=== PATIENT | female | born 1990 | race African-American/Black ===

== ENCOUNTER 2020-07-05 14:28 | Emergency (ER) | payer OTHER ==
--- NOTE | 2020-07-05 15:02 | ED Physician Documentation ---
History of Present Illness - Stated complaint Stated Complaint: GLF - Chief complaint Chief Complaint: Trauma Ext - History obtained from History obtained from: Patient - History of Present Illness Timing: Prior to arrival, How many weeks ago (1) - Additonal information Additional information: 30-year-old female presents the emergency department with 1 week of left knee pain. She reports being at a grocery market about 1 week ago, slipping and falling forward directly onto her left knee. She has had some pain and swelling since. She has not taken anything for pain but has occasionally iced it. No history of previous injury to this leg. She is ambulatory with a mild limp Review of Systems Constitutional: reports: Reviewed and negative Eyes: reports: Reviewed and negative Ears: reports: Reviewed and negative Nose: reports: Reviewed and negative Throat: reports: Reviewed and negative Cardiac: reports: Reviewed and negative Respiratory: reports: Reviewed and negative Skin: reports: Reviewed and negative Musculoskeletal: reports: Joint pain (left knee) Neurologic: reports: Reviewed and negative PD PAST MEDICAL HISTORY - Present Medications Home Medications: Ambulatory Orders Medication Instructions Recorded Confirmed Ibuprofen [Motrin] 600 mg PO Q6H PRN #30 tab 07/05/20 - Allergies Allergies/Adverse Reactions: Allergies Allergy/AdvReac Type Severity Reaction Status Date / Time No Known Drug Allergies Allergy Verified 07/05/20 14:37 - Social History Does the pt smoke?: No Smoking Status: Never smoker PD ED PE EXPANDED - Extremities Extremities: Left knee (Mild tenderness over the left patella without deformity. Normal flexion extension of knee against resistance. No laxity. No tenderness at the tibial plateau or fibular head. nearly normal gait; mild limp only) Results - Vitals Vitals: Vital Signs - 24 hr 07/05/20 14:35 Temperature 37.2 C Heart Rate 65 Respiratory 19 Rate Blood Pressure 135/85 H O2 Saturation 100 Oxygen O2 Source Room air - Rads (name of study) left knee Radiology: EMP read indepedently (No acute fracture or dislocation.) PD MEDICAL DECISION MAKING - ED course Complexity details: reviewed results, re-evaluated patient, considered differential, d/w patient ED course: 30-year-old female presents to the emergency department for evaluation of acute left knee pain that was sustained nearly 1 week ago when she fell directly onto her knee at a grocery store. On exam she has mild swelling but no laxity. She has a nearly normal gait with a mild limp noted. I do not appreciate any acute fracture dislocation on the imaging. Patient will be placed in an Jagdish wrap advised NSAID or Tylenol for analgesia. Emergent return precautions discussed. Departure - Departure Clinical Impression: Left knee pain Qualifiers: Chronicity: acute Qualified Code(s): M25.562 - Pain in left knee Knee contusion Qualifiers: Encounter type: initial encounter Laterality: left Qualified Code(s): S80.02XA - Contusion of left knee, initial encounter Condition: Stable Record reviewed to determine appropriate education?: Yes Instructions: ED Contusion Lower Ext Prescriptions: Ibuprofen [Motrin] 600 mg PO Q6H PRN #30 tab PRN Reason: Pain Comments: The x-ray of your knee does not show any broken bones or dislocations. You most likely have soft tissue injury or bruising after the fall. I do recommend that you wear the Jagdish wrap as provided and take ibuprofen as prescribed 2-3 times a day for pain. Please schedule follow-up with your primary care doctor for reevaluation. If not markedly better in 7 to 10 days you may benefit from a physical therapy evaluation
--- NOTE | 2020-07-05 15:32 | XRAY Report ---
PROCEDURE: Knee 2 View LT INDICATIONS: Trauma, fall, rule out fracture TECHNIQUE: 2 views of the left knee(s) were acquired. COMPARISON: None. FINDINGS: Bones: No fractures or dislocations. No suspicious bony lesions. Soft tissues: No joint effusion or lipohemarthrosis. No suspicious soft tissue calcifications. IMPRESSION: No evidence of fracture or other acute finding. Reviewed by: Lionel Bird MD on 07/05/2020 3:31 PM PST Approved by: Lionel Bird MD on 07/05/2020 3:31 PM PST Station ID: [id number]
[2020-07-05 16:12] VITALS: BP 132/72
== END 2020-07-05 16:11 | disposition home or self-care (01) ==
LOC: EDBD → ED 14:28
DX: S80.02XA Contusion of left knee, initial encounter (principal); W01.0XXA Fall on same level from slipping, tripping and stumbling without subsequent striking against object, initial encounter; Y93.01 Activity, walking, marching and hiking; Y92.512 Supermarket, store or market as the place of occurrence of the external cause
CPT/HCPCS: 99281; 99283

== ENCOUNTER 2020-08-18 21:26 | Emergency (ER) | payer OTHER ==
[2020-08-18 21:57] LABS: BASOPHILS % (AUTO) 0.2 %; HGB - HEMOGLOBIN 14.9 g/dL (12.0-16.0); LYMPHOCYTES # (AUTO) 2.6 10^3/uL (1.5-3.5); LYMPHOCYTES % (AUTO) 25.4 %; MEAN CORPUSCULAR HEMOGLOBIN 29.4 pg (27.0-31.0); MEAN CORPUSCULAR HGB CONC 32.8 g/dL (32.0-36.0); MEAN CORPUSCULAR VOLUME 89.5 fL (81.0-99.0); MEAN PLATELET VOLUME 11.2 fL (7.9-10.8); MONOCYTES # (AUTO) 0.5 10^3/uL (0.0-1.0); MONOCYTES % (AUTO) 4.6 %; NEUTROPHILS % (AUTO) 69.6 %; PLT - PLATELET COUNT 241 10^3/uL (130-450); RED BLOOD COUNT 5.07 10^6/uL (4.20-5.40); RED CELL DISTRIBUTION WIDTH 12.6 % (12.0-15.0); WHITE BLOOD COUNT 10.1 x10^3/uL (4.8-10.8)
--- NOTE | 2020-08-18 21:58 | ED Physician Documentation ---
History of Present Illness - Stated complaint Stated Complaint: TINGLING IN LEGS,SEEING FLASHES - Chief complaint Chief Complaint: General - History obtained from History obtained from: Patient - History of Present Illness Timing: How many days ago (6) - Additonal information Additional information: 30-year-old female reports that 6 days ago she began to experience some odd sensations in her leg of some burning and tingling and she has had cramping to her muscles in general. She reports that tonight when she got up she had spots in front of her eyes and she decided to come to the emergency department. She has not had these symptoms previously. She denies getting up in the middle of the night to go to the bathroom and denies any recent vomiting or diarrhea. She feels she is drinking adequate amounts of fluid. Review of Systems Constitutional: denies: Fever Eyes: reports: Other (seeing spots). denies: Decreased vision Ears: denies: Ear pain Nose: denies: Rhinorrhea / runny nose Throat: denies: Sore throat Cardiac: denies: Chest pain / pressure, Palpitations Respiratory: denies: Dyspnea, Cough GI: denies: Abdominal Pain, Nausea, Vomiting, Diarrhea : denies: Dysuria, Frequency Skin: denies: Rash Musculoskeletal: reports: Extremity pain. denies: Neck pain, Back pain, Extremity swelling Neurologic: denies: Generalized weakness, Focal weakness, Numbness PD PAST MEDICAL HISTORY - Present Medications Home Medications: Ambulatory Orders Medication Instructions Recorded Confirmed Alprazolam [Xanax] 0.5 - 1 mg PO Q8HR PRN #12 tablet 08/19/20 - Allergies Allergies/Adverse Reactions: Allergies Allergy/AdvReac Type Severity Reaction Status Date / Time No Known Drug Allergies Allergy Verified 08/18/20 21:34 - Social History Does the pt smoke?: No Smoking Status: Never smoker PD ED PE NORMAL - Vitals Vital signs reviewed: Yes - General General: Alert and oriented X 3, No acute distress, Well developed/nourished - HEENT HEENT: Atraumatic, PERRL, EOMI - Neck Neck: Supple, no meningeal sign, No bony TTP - Cardiac Cardiac: RRR, No murmur - Respiratory Respiratory: No respiratory distress, Clear bilaterally - Abdomen Abdomen: Normal bowel sounds, Soft, Non tender, Non distended, No organomegaly - Back Back: No CVA TTP, No spinal TTP - Derm Derm: Normal color, Warm and dry, No rash - Extremities Extremities: No deformity, No edema - Neuro Neuro: Alert and oriented X 3, 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, No motor deficit, No sensory deficit, Normal speech Eye Opening: Spontaneous Motor: Obeys Commands Verbal: Oriented GCS Score: 15 - Psych Psych: Normal mood, Normal affect Results - Vitals Vitals: Vital Signs - 24 hr 08/18/20 08/18/20 08/18/20 21:29 22:54 23:30 Temperature 36.0 C L Heart Rate 57 L 65 61 Respiratory 14 14 15 Rate Blood Pressure 133/90 H 115/79 121/68 O2 Saturation 99 100 100 08/19/20 08/19/20 01:10 01:18 Temperature Heart Rate 61 Respiratory 14 Rate Blood Pressure 117/76 O2 Saturation 100 Oxygen O2 Source Room air - Labs Labs: Laboratory Tests 08/18/20 08/18/20 08/18/20 21:50 21:52 21:52 WBC 10.1 RBC 5.07 Hgb 14.9 Hct 45.4 MCV 89.5 MCH 29.4 MCHC 32.8 RDW 12.6 Plt Count 241 MPV 11.2 H Neut # (Auto) 7.0 H Lymph # (Auto) 2.6 Mills # (Auto) 0.5 Eos # (Auto) 0.0 Baso # (Auto) 0.0 Absolute Nucleated RBC 0.00 Nucleated RBC % 0.0 Sodium 139 Potassium 3.7 Chloride 102 Carbon Dioxide 25 Anion Gap 12.0 BUN 15 Creatinine 1.0 Estimated GFR (MDRD) 79 L Glucose 89 Calcium 9.8 Total Bilirubin 1.1 H AST 15 ALT 12 Alkaline Phosphatase 43 Total Protein 8.8 H Albumin 4.6 Globulin 4.2 Albumin/Globulin Ratio 1.1 Lipase 37 TSH Urine Color YELLOW Urine Clarity CLEAR Urine pH 6.0 Ur Specific [place] >=1.030 H Urine Protein NEGATIVE Urine Glucose (UA) NEGATIVE Urine Ketones >=80 H Urine Occult Blood MODERATE H Urine Nitrite NEGATIVE Urine Bilirubin NEGATIVE Urine Urobilinogen 0.2 (NORMAL) Ur Leukocyte Esterase NEGATIVE Urine RBC 6-10 H Urine WBC 0-3 Ur Squamous Epith Cells RARE Squamous Urine Bacteria Rare Urine Mucus Few Strands Ur Microscopic Review INDICATED Urine Culture Comments NOT INDICATED Urine HCG, Qual NEGATIVE 08/19/20 00:00 WBC RBC Hgb Hct MCV MCH MCHC RDW Plt Count MPV Neut # (Auto) Lymph # (Auto) Mills # (Auto) Eos # (Auto) Baso # (Auto) Absolute Nucleated RBC Nucleated RBC % Sodium Potassium Chloride Carbon Dioxide Anion Gap BUN Creatinine Estimated GFR (MDRD) Glucose Calcium Total Bilirubin AST ALT Alkaline Phosphatase Total Protein Albumin Globulin Albumin/Globulin Ratio Lipase TSH 2.56 Urine Color Urine Clarity Urine pH Ur Specific [place] Urine Protein Urine Glucose (UA) Urine Ketones Urine Occult Blood Urine Nitrite Urine Bilirubin Urine Urobilinogen Ur Leukocyte Esterase Urine RBC Urine WBC Ur Squamous Epith Cells Urine Bacteria Urine Mucus Ur Microscopic Review Urine Culture Comments Urine HCG, Qual Procedures - IVC sono (time) 2219 Bedside IVC sono: IVC measures (cm) (0.72), Dehydration (est 2-3 liter deficit) PD MEDICAL DECISION MAKING - ED course Complexity details: reviewed old records, reviewed results, re-evaluated patient, considered differential, d/w patient ED course: 30-year-old female complaining of some leg cramping and spots in front of her eyes is found to be dehydrated on interrogation the inferior vena cava and with a very concentrated urine. She does not have a good explanation about why she would be dehydrated she is not using electric blanket she has been sitting spending most of her time indoors recently with forced electric air heat. She denies getting up in the middle the night to go to the bathroom does not have diabetes and that ends up significantly dehydrated and symptomatic. In addition she is complaining of some tingling to her tips of her fingers to her lips and her toes consistent with hyperventilation syndrome and scattered pains. She is administered intravenous saline. I discussed that with the patient the findings of normal blood counts and electrolytes and the likely etiology of her symptoms. I have asked her to try some Xanax when she developed symptoms again and I have asked her to follow-up with her primary care doctor about occult blood in her urine. Departure - Departure Disposition: 01 Home, Self Care Clinical Impression: Hyperventilation syndrome Condition: Stable Instructions: ED Hyperventilation Syndrome Follow-Up: CHANTEL Elaine [Provider Group] Prescriptions: Alprazolam [Xanax] 0.5 - 1 mg PO Q8HR PRN #12 tablet PRN Reason: anxiety/hyperventilation Comments: Today we did not find abnormalities in your laboratory tests or evaluation. Your symptoms are consistent with hyperventilation syndrome and my recommendation is the next time you are beginning to have these symptoms you try this medication which is a sedative. It will make you sleepy and you will not be able to drive after you have taken this. It may be very helpful in controlling her symptoms. If it does control your symptoms this can be helpful to aid in diagnosis. In addition there is some trace occult blood in your urine. Follow-up with your primary care doctor for another urine examination within the next month. Discharge Date/Time: 08/19/20 01:25
[2020-08-18 21:59] LABS: BILIRUBIN,URINE NEGATIVE (NEGATIVE); GLUCOSE, URINE (UA) NEGATIVE (NEGATIVE); KETONES,URINE (UA) >=80 mg/dL (NEGATIVE); LEUKOCYTE ESTERASE, URINE NEGATIVE (NEGATIVE); NITRITE,URINE NEGATIVE (NEGATIVE); OCCULT BLOOD,URINE MODERATE (NEGATIVE); PROTEIN,URINE NEGATIVE (NEGATIVE); UROBILINOGEN,URINE 0.2 (NORMAL) E.U./dL (NORMAL)
[2020-08-18 22:02] LABS: CLARITY,URINE CLEAR (CLEAR); HCG UR QUAL NEGATIVE
[2020-08-18 22:09] LABS: BACTERIA,URINE Rare /HPF (None Seen); MUCUS,URINE Few Strands; SQUAMOUS EPITHELIAL CELL,UR RARE Squamous (<= Few)
[2020-08-18 22:11] LABS: ALBUMIN 4.6 g/dL (3.2-5.5); ALBUMIN/GLOBULIN RATIO 1.1 (1.0-2.2); BILIRUBIN,TOTAL 1.1 mg/dL (0.2-1.0); CALCIUM 9.8 mg/dL (8.5-10.3); TOTAL PROTEIN 8.8 g/dL (6.7-8.2)
[2020-08-18] MEDS ORDERED: SODIUM CHLORIDE 0.9% 1,000 ML IV STA (22:33)
[2020-08-19] MEDS ORDERED: SODIUM CHLORIDE 0.9% 1,000 ML IV STA (00:04)
[2020-08-19 01:25] VITALS: BP 117/76
== END 2020-08-19 01:25 | disposition home or self-care (01) ==
LOC: ED 21:26
DX: F45.8 Other somatoform disorders (principal); E86.0 Dehydration
CPT/HCPCS: 36415; 80053; 81001; 81003; 81025; 83690; 84443; 85025; 87086; 96360; 96361; 99284

== ENCOUNTER 2020-08-24 08:00 | Outpatient (CLI) | payer OTHER ==
[2020-08-25 13:09] LABS: BILIRUBIN,URINE NEGATIVE (NEGATIVE); GLUCOSE, URINE (UA) NEGATIVE (NEGATIVE); KETONES,URINE (UA) NEGATIVE (NEGATIVE); LEUKOCYTE ESTERASE, URINE NEGATIVE (NEGATIVE); NITRITE,URINE NEGATIVE (NEGATIVE); OCCULT BLOOD,URINE SMALL (NEGATIVE); PROTEIN,URINE NEGATIVE (NEGATIVE); UROBILINOGEN,URINE 0.2 (NORMAL) E.U./dL (NORMAL)
[2020-08-25 13:19] LABS: CLARITY,URINE SL. CLOUDY (CLEAR)
[2020-08-25 13:20] LABS: BACTERIA,URINE Moderate /HPF (None Seen); RBC,URINE 0-5 /HPF (0-5); SQUAMOUS EPITHELIAL CELL,UR FEW Squamous (<= Few)
== END 2020-08-24 23:59 | disposition home or self-care (01) ==
LOC: LAB.R 08:00
PROVIDERS: ATTEND Nurse Practitioner Family
DX: R31.9 Hematuria, unspecified (principal)
CPT/HCPCS: 81001; 87086

== ENCOUNTER 2020-10-01 09:21 | Outpatient (CLI) | payer OTHER ==
--- NOTE | 2020-10-01 11:57 | CT Report ---
PROCEDURE: LUMBAR SPINE WO INDICATIONS: LOW BACK PAIN, LEG NUMBNESS TECHNIQUE: Noncontrast 3 mm thick sections acquired from the T12 level to the sacrum. Sagittal and coronal refo rmats were constructed. For radiation dose reduction, the following was used: automated exposure co ntrol, adjustment of mA and/or kV according to patient size. COMPARISON: None. FINDINGS: Image quality: Excellent. Bones: No acute vertebral body compression fractures. No suspicious lytic or blastic bony lesions. Central spinal caliber is of normal overall caliber. No pars defects. Mild levoconvex scoliotic curvature is seen. No significant AP alignment abnormality can be seen. T12-L1: Normal in appearance. L1-L2: Normal in appearance. L2-L3: Normal in appearance. L3-L4: Normal in appearance. L4-L5: Normal in appearance. L5-S1: Normal in appearance. Soft tissues: No retroperitoneal masses or hematomas. Visualized aorta is normal in caliber. IMPRESSION: Lumbar spine CT study within normal limits, with note made of mild levoconvex lumbar sclerotic curvat ure. If it would be helpful for clinical management decision making, please consider a dedicated lumbar MR I for further evaluation (assuming that there is no contraindication). Reviewed by: Marv Hooker MD on 10/01/2020 10:56 AM [facility] Approved by: Marv Hooker MD on 10/01/2020 10:56 AM [facility] Station ID: [id number]
== END 2020-10-01 09:22 | disposition home or self-care (01) ==
LOC: DI 09:21
PROVIDERS: ATTEND Nurse Practitioner Family
DX: M54.5 Low back pain (principal); R20.0 Anesthesia of skin